=== PATIENT | female | born 1970 | race Caucasian/White ===

== ENCOUNTER 2017-01-17 00:24 | Emergency (ER) | payer BC ==
[2017-01-17 02:26] LABS: BASO % 0.5 % (0.1-1.2); EOS # 0.1 10_X3_uL (0.0-0.4); EOS % 1.4 % (0.7-5.8); GRAN # 3.2 10_X3_uL (1.6-6.1); GRAN % 48.3 % (34.0-71.1); HEMATOCRIT 41.3 % (34-45); HEMOGLOBIN 14.5 g/dL (11.2-15.7); LYMPH # 2.5 10_X3_uL (1.2-3.7); LYMPH % 37.7 % (19.3-51.7); MEAN CORPUSCULAR HGB CONC 35.1 g/dL (32.0-36.0); MEAN CORPUSCULAR VOLUME 88.2 fL (79-95); MEAN PLATELET VOLUME 9.9 fl (7.5-11.5); MONO # 0.8 10_X3_uL (0.2-0.9); MONO % 12.1 % (4.7-12.5); PLATELET COUNT 247 x10_3/uL (182-369); RED BLOOD COUNT 4.68 x10_6/uL (3.9-5.2); RED CELL DISTRIBUTION WIDTH 12.7 % (11.7-14.4); WHITE BLOOD COUNT 6.6 x10_3/uL (4.0-10.0)
[2017-01-17 02:38] LABS: ALBUMIN 3.7 gm/dL (3.4-5.0); ALKALINE PHOSPHATASE 77 U/L (50-136); ALT/SGPT 21 U/L (3.5-33.9); AMYLASE 35 U/L (15.62-74.58); AST/SGOT 19 U/L (7.04-26.96); BILIRUBIN,TOTAL 0.63 mg/dL (0.0-1.0); BLOOD UREA NITROGEN 11 mg/dL (7-18); CALCIUM 8.5 mg/dL (8.7-10.7); CARBON DIOXIDE 26 mmol/L (21-32); CREATININE < 0.5 mg/dL (0.6-1.3); GLUCOSE,RANDOM 99 mg/dL (70-99); LIPASE 30 U/L (6.75-60.75); POTASSIUM 3.4 mmol/L (3.5-5.1); SODIUM 139 mmol/L (136-145)
== END 2017-01-17 05:12 | disposition home or self-care (01) ==
LOC: ER 00:24
PROVIDERS: Emergency Medicine
DX: K59.00 Constipation, unspecified (principal); R10.9 Unspecified abdominal pain; E03.9 Hypothyroidism, unspecified; Z90.49 Acquired absence of other specified parts of digestive tract; Z79.899 Other long term (current) drug therapy
CPT/HCPCS: 36415; 80053; 82150; 83690; 85025; 96374; 99070; 99284-25